=== PATIENT | female | born 1965 | race Caucasian/White ===

== ENCOUNTER 2018-01-09 21:17 | Emergency (ER) | payer OTHER ==
[~2018-01-09] VITALS: Ht 167.6 cm; Wt 108.1 kg
[2018-01-09] MEDS ORDERED: ACETAMINOPHEN 500 MG TABLET PO ONE (22:00)
[2018-01-09 22:09] LABS: BASOPHILS # (AUTO) 0.06 x10^3/uL (0-0.1); BASOPHILS % (AUTO) 1 % (0-1); EOSINOPHILS # (AUTO) 0.18 x10^3/uL (0-0.4); EOSINOPHILS % (AUTO) 2 % (1-7); LYMPHOCYTES # (AUTO) 1.93 x10^3/uL (1-3.4); LYMPHOCYTES % (AUTO) 23 % (22-44); MD NO; MEAN CORPUSCULAR HEMOGLOBIN 29.4 pg (27.0-34.8); MEAN CORPUSCULAR HGB CONC 32.8 g/dL (32.4-35.8); MEAN CORPUSCULAR VOLUME 89.7 fL (80-100); MEAN PLATELET VOLUME 9.3 fL (7.4-10.4); MONOCYTES # (AUTO) 0.65 x10^3/uL (0.2-0.8); MONOCYTES % (AUTO) 8 % (2-9); NEUTROPHILS # (AUTO) 5.58 x10^3/uL (1.8-6.8); NEUTROPHILS % (AUTO) 67 % (42-75); PLATELET COUNT 299 x10^3/uL (130-400); RED CELL DISTRIBUTION WIDTH 14.6 % (9.6-15.2)
[2018-01-09 22:19] LABS: ALBUMIN 3.6 g/dL (3.4-5.0); ANION GAP 8 mmol/L (5-15); CALCIUM 8.9 mg/dL (8.5-10.1); CHLORIDE 108 mmol/L (98-107)
[2018-01-09 22:22] LABS: ALANINE AMINOTRANSFERASE 24 U/L (12-78); ALKALINE PHOSPHATASE 127 U/L (45-117); BILIRUBIN,TOTAL 0.3 mg/dL (0.2-1.0); CREATININE 0.85 mg/dL (0.55-1.02)
[2018-01-09] MEDS ORDERED: ACETAMINOPHEN 500 MG TABLET ONE (22:29)
[2018-01-09 22:47] LABS: MICROSCOPIC INDICATED
[2018-01-09 22:50] LABS: CULTURE INDICATED? YES
[2018-01-09 23:49] VITALS: BP 144/57
== END 2018-01-10 00:05 | disposition home or self-care (01) ==
LOC: ED 23:59
DX: R10.13 Epigastric pain (principal); N30.01 Acute cystitis with hematuria
CPT/HCPCS: 36415; 80053; 81001; 83690; 85025; 87086; 93005; 99285

== ENCOUNTER 2020-04-27 10:55 | Inpatient (IN) | payer MEDICAID ==
[~2020-04-27] VITALS: Ht 167.6 cm; Wt 115.7 kg
--- NOTE | 2020-04-27 11:05 | NUR ---
ERMD AT BEDSIDE FOR EVALUATION.
--- NOTE | 2020-04-27 11:14 | NUR ---
PATIENT ANA PAULA JOHNSON WITH CHIEF C/O ALOC. PER EMS PATIENT HAS BEEN ALTERED FOR THE LAST 4 DAYS ACCORDING TO FAMILY. PATIENT C/O CURIEL X4 DAYS WELL. PER EMS PATIENT'S TEMP WAS 99.5 EN ROUTE, BLOOD SUGAR 243 EN ROUTE. PATIENT'S FAMILY DENIES GLF, DENIES TRAUMA. 18 GAUGE IV STARTED EN ROUTE IN LEFT AC. EMS REPORTS PATIENT IS A&0X2, REPETITIVE QUESTIONING BY PATIENT. UPON EXAM PATIENT IS A&OX3, KNOWS NAME &, KNOWS SHE IS IN THE HOSPITAL AND THAT SHES HERE BECAUSE SHE "DOESN'T FEEL WELL." WHEN ASKED WHAT THE DATE IS PATIENT STATES "1978 SOMETHING." ASKED PATIENT IF SHE KNOWS WHO THE PRESIDENT IS, PATIENT STATES "IT'S THAT CRAZY ONE." PATIENT KEEPS ASKING "YOUR NOT GOING TO LEAVE ME ARE YOU?" REDIRECTED EASILY. PATIENT DIAGNOSED WITH LUPUS 6 MONTHS AGO, HAS HISTORY OF HYDROCEPHALUS AT AGE 12 WITH R-VENTRICLE PARATINEAL SHUNT PLACEMENT. [place], VSS, SIDE RAILS UP X2, CALL LIGHT WITHIN REACH.
[2020-04-27] MEDS ORDERED: SODIUM CHLORIDE FLUSH 10ML SYR IVF ONE (11:30)
--- NOTE | 2020-04-27 11:34 | NUR ---
PATIENT TO IMAGING.
[2020-04-27 11:44] LABS: BASOPHILS % (AUTO) 0 % (0-1); EOSINOPHILS % (AUTO) 1 % (1-7); HCT (SEDRATE) 43.2 % (34.6-47.8); LYMPHOCYTES % (AUTO) 21 % (22-44); MEAN CORPUSCULAR HEMOGLOBIN 30.2 pg (27.0-34.8); MEAN CORPUSCULAR HGB CONC 33.6 g/dL (32.4-35.8); MEAN PLATELET VOLUME 8.6 fL (7.4-10.4); MONOCYTES % (AUTO) 7 % (2-9); NEUTROPHILS % (AUTO) 71 % (42-75); PLATELET COUNT 288 x10^3/uL (130-400); RED BLOOD COUNT 4.81 x10^6/uL (3.82-5.3); RED CELL DISTRIBUTION WIDTH 14.7 % (9.6-15.2)
[2020-04-27 11:48] LABS: MD NO
[2020-04-27 11:51] LABS: ALBUMIN 3.7 g/dL (3.4-5.0); ANION GAP 4 mmol/L (5-15); CALCIUM 9.2 mg/dL (8.5-10.1); CHLORIDE 113 mmol/L (98-107)
[2020-04-27 12:00] LABS: ALANINE AMINOTRANSFERASE 22 U/L (12-78); ALKALINE PHOSPHATASE 122 U/L (45-117); BILIRUBIN,TOTAL 0.4 mg/dL (0.2-1.0); CREATININE 0.93 mg/dL (0.55-1.02); TOTAL PROTEIN 7.4 g/dL (6.4-8.2)
--- NOTE | 2020-04-27 12:03 | NUR ---
PATIENT AMBULATED TO BATHROOM WITH RN ASSISTANCE FOR URINE SAMPLE.
--- NOTE | 2020-04-27 12:07 | NUR ---
PATIENT ASSISTED BACK TO [facility], CONNECTED TO CIVIL CADD TECHNICIAN, SIDE RAILS UP X2, CALL LIGHT WITHIN REACH. URINE SAMPLE COLLECTED AND SENT TO LAB.
[2020-04-27 12:22] LABS: MICROSCOPIC NOT IND
[2020-04-27 12:35] LABS: AMPHETAMINE SCREEN, URINE Negative (Negative); BARBITURATE SCREEN, URINE Negative (Negative); BENZODIAZEPINE SCREEN, URINE Negative (Negative); CANNABINOID SCREEN, URINE Negative (Negative); COCAINE SCREEN, URINE Negative (Negative); METHADONE SCREEN, URINE Negative (Negative); OPIATE SCREEN, URINE Negative (Negative)
--- NOTE | 2020-04-27 12:57 | NUR ---
ERMD AT BEDSIDE TO DISCUSS POC.
[2020-04-27] MEDS ORDERED: PANT20TA4 PO (12:58)
--- NOTE | 2020-04-27 13:01 | NUR ---
UPDATED MOM ON POC.
[2020-04-27 13:27] LABS: INTERNATIONAL NORMALIZED RATIO 1.02 (0.93-1.1); PROTHROMBIN TIME 10.9 Seconds (9.6-11.5)
--- NOTE | 2020-04-27 13:42 | NUR ---
PATIENT TO IMAGING.
--- NOTE | 2020-04-27 13:55 | NUR ---
[facility] [phone].
--- NOTE | 2020-04-27 14:12 | NUR ---
PATIENT BACK FROM IMAGING, ASHLEY FULTON, PATIENT A&Ox3, KNOWS NAME &, KNOWS SHE IS IN THE HOSPITAL, AND WHY SHE IS HERE, HOWEVER, PATIENT DOES NOT KNOW THE YEAR, STATES IT'S "1977." CCU , DR. AMOS AT BEDSIDE FOR ADMISSION EVALUATION.
--- NOTE | 2020-04-27 14:38 | NUR ---
REPORT GIVEN TO ADAM BRANCH IN THE OR.
[2020-04-27] MEDS ORDERED: CHLORHEXIDINE 15 ML UDC ONE (14:41)
[2020-04-27] MEDS ORDERED: THROMBIN 5,000 UNIT VIAL TP ONE (14:45)
[2020-04-27] MEDS ORDERED: EPINEPHRINE 1 MG/ML, 1ML ONE (14:45)
[2020-04-27] MEDS ORDERED: BACITRACIN 50,000 UNIT ONE (14:45)
[2020-04-27] MEDS ORDERED: BUPIVACAINE/PF 0.5% ONE (14:45)
[2020-04-27] MEDS ORDERED: FENTANYL PF 250 MCG/5ML ONE (14:52)
--- NOTE | 2020-04-27 14:58 | NUR ---
PATIENT TRANSFERRED TO OR BY TWO OR TECHS VIA PATY, MOM ACCOMPANIED PATIENT TO PRE-OP AREA. ALL PATIENT BELONINGS GATHERED AND TAKEN WITH PATIENT.
[2020-04-27] MEDS ORDERED: ENALAPRILAT 1.25 MG/ML, 2ML IVPush PRN (15:00)
[2020-04-27] MEDS ORDERED: LABETALOL 5MG/ML, 20ML IVPush PRN (15:00)
[2020-04-27] MEDS ORDERED: LORazepam 2 MG/ML, 1ML IVPush PRN (15:00)
[2020-04-27] MEDS: SODIUM CHLORIDE 0.9% 1,000 ML IV SCH (15:00)
[2020-04-27] MEDS ORDERED: OXYcodone IR 5MG TABLET PO PRN (15:00)
[2020-04-27] MEDS ORDERED: ONDANSETRON 2MG/ML, 2ML IVPush PRN (15:00)
[2020-04-27] MEDS ORDERED: POLYETHYLENE GLYCOL 17 GM PACKET PO PRN (15:00)
[2020-04-27] MEDS ORDERED: ACETAMINOPHEN 325 MG TABLET PO PRN ×4 (15:00→19:30)
[2020-04-27] MEDS ORDERED: BISACODYL 10 MG SUPP PR PRN ×2 (15:00→19:30)
[2020-04-27] MEDS ORDERED: CHLORHEXIDINE 15 ML UDC MM ONE (15:00)
[2020-04-27] MEDS ORDERED: DEXAMETHASONE 4 MG/ML, 1ML ONE (15:43)
[2020-04-27] MEDS ORDERED: SUGAMMADEX 200 MG/2 ML IVPush ONE (15:43)
[2020-04-27] MEDS ORDERED: GLYCOPYRROLATE 0.2MG/1ML, 5ML ONE (16:56)
[2020-04-27] MEDS ORDERED: CEFAZOLIN 1,000 MG ONE (16:56)
[2020-04-27] MEDS ORDERED: ONDANSETRON 2MG/ML, 2ML ONE ×2 (16:56→17:30)
[2020-04-27] MEDS ORDERED: ROCURONIUM 10MG/ML,5ML ONE (16:56)
[2020-04-27] MEDS ORDERED: PROPOFOL 10 MG/ML, 20ML ONE (16:56)
[2020-04-27] MEDS ORDERED: SUCCINYLCHOLINE 20 MG/ML, 10ML ONE (16:56)
[2020-04-27] MEDS ORDERED: NEOSTIGMINE 1 MG/ML, 10ML ONE (16:56)
[2020-04-27 17:05] LABS: GLUCOSE, CSF 76 mg/dL (40-80); TOTAL PROTEIN,CSF 12 mg/dL (15-45)
[2020-04-27] MEDS ORDERED: hydrALAzine 20 MG/ML, 1ML IV PRN ×2 (17:30→19:00)
[2020-04-27] MEDS ORDERED: MEPERIDINE/PF 25MG/0.5ML IVPush PRN (17:30)
[2020-04-27] MEDS ORDERED: DIAZEPAM 5 MG/ML, 2ML IVPush PRN (17:30)
[2020-04-27] MEDS ORDERED: LABETALOL 5MG/ML, 20ML IV PRN ×2 (17:30→19:30)
[2020-04-27] MEDS ORDERED: PROMETHAZINE 25 MG/ML, 1ML IV PRN (17:30)
[2020-04-27] MEDS ORDERED: ALBUTEROL SULFATE 2.5 MG/3 ML NPPB PRN (17:30)
[2020-04-27] MEDS ORDERED: OXYcodone 5 MG/5 ML ORAL.SOL UDC PO PRN (17:30)
[2020-04-27] MEDS ORDERED: FENTANYL PF 100 MCG/2ML IV PRN (17:30)
[2020-04-27] MEDS ORDERED: HYDROmorphone 2 MG/ML, 1ML IVPush PRN (17:30)
[2020-04-27] MEDS ORDERED: PROMETHAZINE 25 MG/ML, 1ML ONE (18:04)
[2020-04-27] MEDS ORDERED: ACETAMINOPHEN 650 MG/20.3 ML UDC ONE (18:21)
[2020-04-27] MEDS ORDERED: MORPHINE SULFATE 4 MG/ML, 1ML ONE (19:13)
[2020-04-27] MEDS ORDERED: MAGNESIUM HYDROXIDE 8%, 30ML UDC PO PRN (19:30)
[2020-04-27] MEDS ORDERED: morphine SULFATE 10 MG/ML, 1ML IV PRN (19:30)
[2020-04-27] MEDS ORDERED: ACETAMINOPHEN 650 MG SUPP PR PRN ×2 (19:30)
[2020-04-27] MEDS ORDERED: ONDANSETRON 2MG/ML, 2ML IV PRN (19:30)
[2020-04-27 20:24] VITALS: BP 132/85
[2020-04-27] MEDS: NS + 20MEQ KCL 1,000 ML IV SCH (22:41)
[2020-04-28 00:27] VITALS: BP 132/85
[2020-04-28] MEDS: CEFAZOLIN PMX 1GM/50ML 50 ML IVPB SCH ×2 (00:28→08:27)
[2020-04-28] MEDS: HYDROcodone/APAP 5/325 TABLET PO PRN ×5 (00:29→15:19)
[2020-04-28 01:43] VITALS: BP 132/85
[2020-04-28 04:04] VITALS: BP 128/85
[2020-04-28] MEDS: SODIUM CHLORIDE 0.9% 1,000 ML IV SCH ×2 (04:20→17:40)
[2020-04-28 05:06] LABS: BASOPHILS % (AUTO) 0 % (0-1); EOSINOPHILS % (AUTO) 0 % (1-7); LYMPHOCYTES % (AUTO) 3 % (22-44); MEAN CORPUSCULAR HEMOGLOBIN 30.2 pg (27.0-34.8); MEAN CORPUSCULAR HGB CONC 33.4 g/dL (32.4-35.8); MEAN PLATELET VOLUME 8.6 fL (7.4-10.4); MONOCYTES % (AUTO) 4 % (2-9); NEUTROPHILS % (AUTO) 93 % (42-75); PLATELET COUNT 282 x10^3/uL (130-400); RED BLOOD COUNT 4.36 x10^6/uL (3.82-5.3); RED CELL DISTRIBUTION WIDTH 14.2 % (9.6-15.2)
[2020-04-28 05:12] LABS: MD NO
[2020-04-28 05:15] LABS: ALBUMIN 3.2 g/dL (3.4-5.0); ANION GAP 6 mmol/L (5-15); CALCIUM 8.4 mg/dL (8.5-10.1); CHLORIDE 110 mmol/L (98-107)
[2020-04-28 05:28] LABS: ALANINE AMINOTRANSFERASE 20 U/L (12-78); ALKALINE PHOSPHATASE 103 U/L (45-117); BILIRUBIN,TOTAL 0.6 mg/dL (0.2-1.0); CREATININE 1.07 mg/dL (0.55-1.02); TOTAL PROTEIN 6.6 g/dL (6.4-8.2)
[2020-04-28] MEDS: PANTOPRAZOLE 40MG TABLET PO SCH (06:53)
[2020-04-28 08:00] VITALS: BP 132/79
[2020-04-28] MEDS: SENNA/DOCUSATE TABLET PO SCH ×2 (08:27→09:00)
[2020-04-28] MEDS: NS + 20MEQ KCL 1,000 ML IV SCH (12:00)
[2020-04-28 13:50] VITALS: BP 148/80
[2020-04-28 19:26] VITALS: BP 134/83
[2020-04-28] MEDS: OXYcodone/APAP 5/325MG TABLET PO PRN ×2 (20:16→23:34)
[2020-04-29] MEDS: NS + 20MEQ KCL 1,000 ML IV SCH (00:30)
[2020-04-29 00:43] VITALS: BP 159/83
[2020-04-29] MEDS: OXYcodone/APAP 5/325MG TABLET PO PRN ×4 (03:12→23:28)
[2020-04-29 05:52] LABS: BASOPHILS % (AUTO) 1 % (0-1); EOSINOPHILS % (AUTO) 1 % (1-7); LYMPHOCYTES % (AUTO) 22 % (22-44); MEAN CORPUSCULAR HEMOGLOBIN 30.2 pg (27.0-34.8); MEAN CORPUSCULAR HGB CONC 33.7 g/dL (32.4-35.8); MEAN PLATELET VOLUME 8.5 fL (7.4-10.4); MONOCYTES % (AUTO) 10 % (2-9); NEUTROPHILS % (AUTO) 67 % (42-75); PLATELET COUNT 247 x10^3/uL (130-400); RED BLOOD COUNT 4.05 x10^6/uL (3.82-5.3); RED CELL DISTRIBUTION WIDTH 14.7 % (9.6-15.2)
[2020-04-29 05:53] LABS: MD NO
[2020-04-29 06:06] LABS: ANION GAP 3 mmol/L (5-15); CHLORIDE 110 mmol/L (98-107)
[2020-04-29 06:10] LABS: ALANINE AMINOTRANSFERASE 17 U/L (12-78); ALKALINE PHOSPHATASE 95 U/L (45-117); BILIRUBIN,TOTAL 0.3 mg/dL (0.2-1.0); TOTAL PROTEIN 6.2 g/dL (6.4-8.2)
[2020-04-29] MEDS: SODIUM CHLORIDE 0.9% 1,000 ML IV SCH (06:31)
[2020-04-29 07:17] VITALS: BP 144/77
[2020-04-29] MEDS: PANTOPRAZOLE 40MG TABLET PO SCH (08:07)
[2020-04-29] MEDS: SENNA/DOCUSATE TABLET PO SCH ×2 (08:08→08:10)
[2020-04-29 13:25] VITALS: BP 145/79
[2020-04-29] MEDS ORDERED: OXYcodone/APAP 5/325MG TABLET PO PRN ×2 (14:00)
[2020-04-29] MEDS ORDERED: OXYcodone/APAP 5/325MG TABLET ONE (16:09)
[2020-04-29 21:04] VITALS: BP 132/76
[2020-04-30 02:00] VITALS: BP 122/70
[2020-04-30] MEDS: OXYcodone/APAP 5/325MG TABLET PO PRN ×3 (05:38→22:28)
[2020-04-30 05:49] LABS: ANION GAP 3 mmol/L (5-15); CALCIUM 8.2 mg/dL (8.5-10.1); CHLORIDE 107 mmol/L (98-107); CREATININE 0.81 mg/dL (0.55-1.02)
[2020-04-30] MEDS: SENNA/DOCUSATE TABLET PO SCH (08:11)
[2020-04-30] MEDS: PANTOPRAZOLE 40MG TABLET PO SCH (08:11)
[2020-04-30 08:15] VITALS: BP 171/95
[2020-04-30] MEDS ORDERED: POLYETHYLENE GLYCOL 17 GM PACKET NG STA (09:14)
[2020-04-30] MEDS ORDERED: MECLIZINE 25 MG TABLET PO PRN (13:30)
[2020-04-30 14:20] VITALS: BP 118/75
[2020-04-30 19:10] VITALS: BP 143/77
[2020-05-01 01:53] VITALS: BP 131/82
[2020-05-01] MEDS: OXYcodone/APAP 5/325MG TABLET PO PRN ×2 (05:04→11:34)
[2020-05-01 05:35] LABS: BASOPHILS % (AUTO) 1 % (0-1); EOSINOPHILS % (AUTO) 2 % (1-7); LYMPHOCYTES % (AUTO) 13 % (22-44); MEAN CORPUSCULAR HEMOGLOBIN 30.6 pg (27.0-34.8); MEAN PLATELET VOLUME 8.4 fL (7.4-10.4); MONOCYTES % (AUTO) 10 % (2-9); NEUTROPHILS % (AUTO) 74 % (42-75); PLATELET COUNT 278 x10^3/uL (130-400); RED BLOOD COUNT 4.34 x10^6/uL (3.82-5.3); RED CELL DISTRIBUTION WIDTH 14.4 % (9.6-15.2)
[2020-05-01 05:42] LABS: ANION GAP 5 mmol/L (5-15); CALCIUM 8.7 mg/dL (8.5-10.1); CHLORIDE 104 mmol/L (98-107); CREATININE 0.93 mg/dL (0.55-1.02)
[2020-05-01 05:47] LABS: MD NO
[2020-05-01 07:20] VITALS: BP 135/84
[2020-05-01] MEDS: PANTOPRAZOLE 40MG TABLET PO SCH (08:12)
[2020-05-01] MEDS: SENNA/DOCUSATE TABLET PO SCH (08:12)
[2020-05-01] MEDS ORDERED: MECL-101 PO (12:28)
[2020-05-01] MEDS ORDERED: NAPR-856 PO ×2 (12:28)
[2020-05-01] MEDS ORDERED: OXYC1TAB14 PO (12:28)
[2020-05-01 13:50] VITALS: BP 134/83
== END 2020-05-01 15:57 | disposition home or self-care (01) | DRG 32 ==
LOC: ED 11:48 → EDIP 13:07 → 4NE 18:57
PROVIDERS: ADMIT Internal Medicine; ATTEND Internal Medicine
PROC: 00P63JZ Removal of Synthetic Substitute from Cerebral Ventricle, Percutaneous Approach (ICD-10-PCS; 2020-04-27)
PROC: 00163J6 Bypass Cerebral Ventricle to Peritoneal Cavity with Synthetic Substitute, Percutaneous Approach (ICD-10-PCS; principal; 2020-04-27 15:00)
DX: T85.01XA Breakdown (mechanical) of ventricular intracranial (communicating) shunt, initial encounter (principal); G91.1 Obstructive hydrocephalus; G93.40 Encephalopathy, unspecified; G91.0 Communicating hydrocephalus; Z68.41 Body mass index [BMI] 40.0-44.9, adult; I10 Essential (primary) hypertension; Y75.2 Prosthetic and other implants, materials and neurological devices associated with adverse incidents; R73.9 Hyperglycemia, unspecified; R21 Rash and other nonspecific skin eruption; Z20.822 Contact with and (suspected) exposure to COVID-19; K21.9 Gastro-esophageal reflux disease without esophagitis; K59.00 Constipation, unspecified; E66.01 Morbid (severe) obesity due to excess calories; D72.828 Other elevated white blood cell count; Z88.5 Allergy status to narcotic agent; Z79.899 Other long term (current) drug therapy
CPT/HCPCS: 36415; 70250; 72040; 74018; 89051; 96374; 96375; 99291; S0020; 70450; 71045; 76604; 80048; 80053; 80307; 81003; 82945; 83036; 83605; 83735; 84100; 84157; 84443; 85025; 85610; 85651; 86140; 87040; 87635; G0378; J0171; J0690; J1100; J2405; J2550; J2704; J2710; J3010; J3480; C1727; C1894; J0330; J2270; J7030

== ENCOUNTER → 2020-06-24 | Outpatient (CLI) | payer MEDICAID ==
[~2020-06-24] MED LIST: MECL-101 PO; NAPR-856 PO; OXYC1TAB14 PO; PANT20TA4 PO
== END | disposition home or self-care (01) ==
LOC: CFH 14:53
PROVIDERS: ATTEND Registered Nurse
DX: K57.30 Diverticulosis of large intestine without perforation or abscess without bleeding (principal); R10.9 Unspecified abdominal pain; G91.9 Hydrocephalus, unspecified; R51.9 Headache, unspecified
CPT/HCPCS: 70450; 74176

== ENCOUNTER 2020-08-04 18:19 | Emergency (ER) | payer MEDICAID ==
[~2020-08-04] VITALS: Ht 167.6 cm; Wt 113.3 kg
--- NOTE | 2020-08-04 18:39 | NUR ---
LEATHER TOOLER: PT TO ROOM FROM SARA FENG
[2020-08-04 19:40] LABS: BASOPHILS % (AUTO) 1 % (0-1); EOSINOPHILS % (AUTO) 2 % (1-7); LYMPHOCYTES % (AUTO) 21 % (22-44); MEAN CORPUSCULAR HEMOGLOBIN 30.1 pg (27.0-34.8); MEAN CORPUSCULAR HGB CONC 33.4 g/dL (32.4-35.8); MEAN PLATELET VOLUME 8.2 fL (7.4-10.4); MONOCYTES % (AUTO) 9 % (2-9); NEUTROPHILS % (AUTO) 67 % (42-75); PLATELET COUNT 295 x10^3/uL (130-400); RED BLOOD COUNT 4.57 x10^6/uL (3.82-5.3); RED CELL DISTRIBUTION WIDTH 14.9 % (9.6-15.2)
[2020-08-04 19:45] LABS: ALBUMIN 3.5 g/dL (3.4-5.0); ANION GAP 5 mmol/L (5-15); CALCIUM 8.4 mg/dL (8.5-10.1); CHLORIDE 110 mmol/L (98-107); CREATININE 0.88 mg/dL (0.55-1.02)
[2020-08-04 19:49] LABS: MD NO
--- NOTE | 2020-08-04 20:02 | NUR ---
PT TO ROOM 31 W/ C/O VB STARTED 1 HR PRIOR TO ARRIVAL TO ED. PT STATES SHE HAS NOT HAD A PERIOD SINCE 2013 AND STATES HEAVY VB W/ CLOTS. PT RESTING ON GURNEY. NADN. MONITORS APPLIED. VSS.
[2020-08-04 20:17] LABS: MICROSCOPIC INDICATED
--- NOTE | 2020-08-04 21:03 | NUR ---
Report from ADAM dumont Pt to be discharged.
--- NOTE | 2020-08-04 21:03 | NUR ---
REPORT GIVEN TO ADAM SPIVEY.
[2020-08-04 21:04] VITALS: BP 163/76
== END 2020-08-04 21:21 | disposition home or self-care (01) ==
LOC: ED 19:57
DX: N93.9 Abnormal uterine and vaginal bleeding, unspecified (principal); R10.30 Lower abdominal pain, unspecified
CPT/HCPCS: 36415; 76830; 80048; 81001; 82040; 85025; 99284